=== PATIENT | male | born 1985 | race Caucasian/White ===

== ENCOUNTER 2023-11-22 18:03 | Emergency (ER) | payer OTHER, SELFPAY ==
--- NOTE | 2023-11-22 18:04 | ED.EAR ---
HPI - Ear Problem General Chief complaint: Ear Stated complaint: R EARACHE Time Seen by Provider: 11/22/23 18:04 Source: patient Mode of arrival: ambulatory Limitations: no limitations History of Present Illness HPI Narrative: Balwinder is a 38-year-old male presents to the clinic today with complaints of right ear pain yesterday. He states his ear is been more itchy than normal lately, but denies putting anything in his ear, and has been swimming in a pool within the last week. He denies any fevers, chills, discharge, congestion, runny nose, sore throat, tinnitus, or cough. Related Data Allergies Allergy/AdvReac Type Severity Reaction Status Date / Time amoxicillin Allergy Unknown Verified 11/22/23 18:10 Review of Systems Review of Systems: Pertinent positives per HPI. Patient denies any fever, chills, rash, headache, visual changes, dizziness, cough, shortness of breath, chest pain, palpitations, nausea, vomiting, diarrhea, constipation, abdominal pain, or any urinary issues. PMFSH Comments At the time of my signature, I reviewed and agree with the nursing past medical, surgical, social, and family history. There is no relevant family history pertinent to the patient complaint. Exam Narrative: General: Well-developed, well nourished, in no apparent distress Head: Normocephalic, atraumatic Eyes: Pupils equally round and reactive to light bilaterally, EOM intact, sclera and conjunctive clear, no discharge, lids normal Ears: TMs intact and clear, pustules in the right auditory canal, right tragus, pinnae, and mastoid process tender to palpation, no drainage, grossly hearing normal. Nose: Nares patent, no discharge, no inflammation, no sinus tenderness. Mouth: Oral pharynx without lesions or masses, good dentition, MMM. Neck: Supple, trachea midline, no enlargement of anterior or posterior cervical nodes, no thyroid masses or goiter palpable. Course Course Emergency Course: Portions of this record may have been created with voice recognition software. Level of Care: Express Care Visit Vital Signs Vital signs: Vital signs reviewed Medical Decision Making MDM Narrative Medical decision making narrative: At the time of visit patient is resting comfortably on the exam table. Patient appears to be nontoxic. Plan: I suspect patient has otitis externa. I will send a prescription for ofloxacin ear drops and this was reviewed with the patient. Supportive measures were discussed with the patient and they voiced understanding discharge instructions and agrees to treatment plan. Return precautions reviewed Differential Diagnosis Differential Diagnosis: Otitis externa, otitis media, otalgia, upper respiratory infection, sinusitis Discharge Plan Discharge Clinical Impression: Otitis externa Qualifiers: Otitis externa type: diffuse Chronicity: acute Laterality: right Qualified Code(s): H60.311 - Diffuse otitis externa, right ear Patient Disposition: Home, Self-Care Condition: Stable Instructions: Antibiotic Form, Swimmer's Ear (ED) Additional Instructions: Take any prescribed medications only as directed, Tylenol/motrin as needed for pain May use heating pad to alleviate pain Avoid bottle propping if ear infection in infant. If you get recurrent ear infections it may be warranted to follow up with ENT. Follow up with your PCP in 3-5 days if symptoms persist. Prescriptions: New ofloxacin 0.3 % drops 5 drp otic (ear) BID 7 Days Qty: 5 0RF Follow-up/Referrals: UNKNOWN,DOCTOR [Non-Staff] - Time of Disposition: 18:16 Quality NIHSS Nursing Documentation ED NIHSS nursing documentation: reviewed/agree
[2023-11-22 18:12] VITALS: BP 138/89; PULSE 95; RESP 16; TEMP 36.2; O2SAT 99
== END 2023-11-22 18:19 | disposition home or self-care (01) ==
PROVIDERS: Emergency Provider Nurse Practitioner Family
DX: H60.311 Diffuse otitis externa, right ear (principal)
CPT/HCPCS: 99203; G0463

== ENCOUNTER 2024-02-21 13:27 | Emergency (ER) | payer OTHER, SELFPAY ==
--- NOTE | ~2024-02-21 | CT_ITS ---
EXAMINATION: CT abdomen pelvis wo con DATE: 02/21/2024 14:25 INDICATION: Left flank pain. Hematuria. TECHNIQUE: Computed tomography (CT) of the abdomen and pelvis was performed without intravenous contr ast. Automated exposure control and iterative reconstruction technique were employed. The dose-length product was 1627.43 mGy-cm. COMPARISON: None. FINDINGS: The visualized portions of the lung bases demonstrate mild atelectasis. No pleural effusion . The heart size is normal. No pericardial effusion. There is bilateral gynecomastia. There is diffus e hepatic steatosis. The gallbladder, spleen, pancreas, adrenal glands, and right kidney are normal. There is mild left hydronephrosis and hydroureter. There is a 6 mm stone in distal left ureter. There are no dilated loops of bowel. The appendix is normal. There are no pathologically enlarged lymph no jude. There is no free intraperitoneal fluid. There is mild osteoarthritis of the hips. IMPRESSION: 1. 6 mm stone in distal left ureter with mild left hydronephrosis and hydroureter. Reviewed, dictated and finalized at location B. IMPRESSION: 1. 6 mm stone in distal left ureter with mild left hydronephrosis and hydrouret er.
[2024-02-21 13:41] VITALS: BP 150/94; PULSE 105; RESP 20; TEMP 36.4; O2SAT 100
--- NOTE | 2024-02-21 13:46 | ED.BACK ---
HPI - Back Pain/Injury General Chief Complaint: Back Pain/Injury Stated Complaint: left flank pain Time Seen by Provider: 02/21/24 13:46 Focused HPI: This is a 38 year old male that presents to the ER for left flank pain. Started this morning, progressively worsening. Associated hematuria and dysuria. Denies fevers. GENERAL: Uncomfortable, well-nourished, and in no acute distress. HEAD: Normocephalic, atraumatic. CHEST: Clear to auscultation. ?No respiratory distress. HEART: Regular rate and rhythm.? NEURO: ?Alert and oriented x3. Patient screened in triage and initial orders placed.? ?Additional care and disposition to be based upon?diagnostic testing and treatment. Related Data Allergies Allergy/AdvReac Type Severity Reaction Status Date / Time amoxicillin Allergy Unknown Verified 11/22/23 18:10 Review of Systems Review of Systems: CONSTITUTIONAL: Denies fever GASTROINTESTINAL: Reports abdominal pain. Denies nausea, vomiting GENITOURINARY: Reports dysuria and hematuria. All systems reviewed & are unremarkable except as noted in HPI and below PMFSH Past Medical History Medical History (Updated 02/21/24 @ 16:59 by Dianna Fischer PA-C) No active medical problems Social History Social History (Updated 02/21/24 @ 16:55 by Dianna Fischer PA-C) Substance use: never Exam Narrative: GENERAL: Uncomfortable, well-nourished, and in no acute distress. HEAD: Normocephalic, atraumatic. EYES: EOMI. CHEST: Clear to auscultation. No respiratory distress. No wheezes rales or rhonchi HEART: Regular rate and rhythm. No murmur heard. Normal peripheral pulses. ABDOMEN: Soft, nontender, nondistended, normal active bowel sounds. EXTREMITIES: Normal range of motion. No edema. SKIN: Warm, dry, no rash. NEURO: No focal deficits. Alert and oriented x3. PSYCH: Normal mood and affect Course Course Emergency Course: Patient updated on his workup and agrees with plan of care. Reports relief with Toradol Vital Signs Vital signs: Vital Signs Temperature 97.5 F L 02/21/24 13:41 Pulse Rate 105 H 02/21/24 13:41 Respiratory Rate 20 02/21/24 13:41 Blood Pressure 150/94 H 02/21/24 13:41 Pulse Oximetry 100 02/21/24 13:41 Temperature 97.5 F L 02/21/24 13:41 Pulse Rate 105 H 02/21/24 13:41 Respiratory Rate 20 02/21/24 13:41 Blood Pressure 150/94 H 02/21/24 13:41 Pulse Oximetry 100 02/21/24 13:41 MDM - Back Pain/Injury MDM Narrative Medical decision making narrative: Patient presents to the ER for left flank pain. He is afebrile and nontoxic appearing. Tachycardic upon arrival, this improved with management of his pain. Cbc without leukocytosis. Shows mild hemoconcentration. Metabolic panel with normal appearing kidney function. Urine with red blood cells. CT abdomen pelvis shows a 6 mm stone in the distal left ureter. Patient with relief after dose of Toradol. Updated on his workup and agrees with plan of care. is to follow-up with urology. He was given strict return precautions Differential Diagnosis Differential diagnosis: Likely renal colic, pyelonephritis and other (UTI, kidney stone) Lab Data Attestation: I reviewed the patient's lab results. 02/21/24 14:03 02/21/24 14:03 Labs: Lab Results 02/21/24 02/21/24 Range/Units 13:44 14:03 WBC 8.8 (4.5-10.0) K/mm3 RBC 6.28 H (4.6-6.20) M/mm3 Hgb 18.5 H (14.0-18.0) g/dL Hct 54.4 H (42.0-52.0) % MCV 86.6 (80-100) fl MCH 29.5 (26-34) pg MCHC 34.0 (32-36) g/dl RDW 13.1 (11.5-14.5) % Plt Count 291 (150-375) k/mm3 MPV 9.7 (7.4-10.4) fl Immature Gran % (Auto) 0.3 (0-0.5) % Neut % (Auto) 55.2 (45.5-73.1) % Lymph % (Auto) 33.1 (18.3-44.2) % [place] % (Auto) 8.2 (2.6-8.5) % Eos % (Auto) 2.4 (0-4.4) % Baso % (Auto) 0.8 (0.2-1.2) % Lymph # (Auto) 2.92 (0.9-3.2) K/mm3 [place] # (Auto) 0.7 H (0.1-0.6) K/mm3 Eos # (Auto) 0.2 (0-0.3) K/mm3 Baso # (Auto) 0.1 (0.0-0.1) K/mm3 Abs Immat Gran (auto) 0.03 (0.00-0.031) K/mm3 Absolute Neuts (auto) 4.9 (1.3-6.7) K/mm3 Absolute Nucleated RBC 0.000 (0.0-0.012) K/mm3 Nucleated RBC % 0.0 (0.0-0.2) % Sodium 144 (137-145) mmol/L Potassium 3.6 (3.4-5.0) mmol/L Chloride 105 (98-107) mmol/L Carbon Dioxide 24 (22-30) mmol/L Anion Gap 15 H (4-12) mmol/L BUN 14 (9-20) mg/dL Creatinine 1.30 (0.7-1.3) mg/dL Estim Creat Clear Calc 103 ml/min Estimated GFR > 60 (59 - ) Glucose 131 H (65-110) mg/dL Calcium 9.8 (8.4-10.2) mg/dL Total Bilirubin 0.6 (0.2-1.3) mg/dL AST 47 (17-59) U/L ALT 81 H (6-50) U/L Alkaline Phosphatase 114 (38-126) U/L Total Protein 9.0 H (6.3-8.2) g/dL Albumin 5.1 (3.5-5.1) g/dL Lipase 74 (23-300) U/L Urine Color Red H (Yellow) Urine Appearance Turbid H (Clear) Urine pH 8.0 (5.0-9.0) Ur Specific [place] 1.025 (1.001-1.035) Urine Protein 2+ H (Negative) mg/dL Urine Glucose (UA) Negative (Negative) mg/dL Urine Ketones Negative (Negative) mg/dL Ur Blood (Man) 3+ H (Negative) Urine Nitrate Negative (Negative) Urine Bilirubin 1+ H (Negative) Urine Urobilinogen 1.0 (<2.0) mg/dL Add Ur Microanalysis Reviewed Leukocyte Esterase Rfl 1+ H (Negative) STEFANI/UL Urine RBC >100 H (0-2) /hpf Urine WBC 0-5 (0-3) /hpf Ur Squamous Epith Cells None seen (Few) /hpf Urine Bacteria None seen /hpf Urine Casts 0-2 Imaging Data Radiologist's impression: ITS Impressions Abdomen/Pelvis CT 02/21/24 14:34 IMPRESSION: 1. 6 mm stone in distal left ureter with mild left hydronephrosis and hydroureter. Critical Care Time Critical Care Time Critical Care Time: No Discharge Plan Discharge Clinical Impression: Ureterolithiasis Patient Disposition: Home, Self-Care Condition: Improved Instructions: Kidney Stones (ED), How to Strain Your Urine (ED) Additional Instructions: Return to the ER if you experience fever, abdominal pain with nausea and vomiting, you are unable to keep down liquids or solids, you are unable to urinate, or any other symptoms that are concerning to you Remain well hydrated. Take Tamsulosin daily. Over the counter pain medication as needed. Prescribed pain medication as needed. Strain your urine Follow up with Urology (Dr. Lane). Call first thing Saturday morning to make a follow up appointment Prescriptions: New tamsulosin 0.4 mg capsule 0.4 mg PO DAILY Qty: 7 0RF hydrocodone-acetaminophen 5-325 mg tablet 1 tablet PO Q6H PRN (Reason: pain) Qty: 20 0RF No Action ofloxacin 0.3 % drops 5 drp otic (ear) BID 7 Days Qty: 5 0RF Follow-up/Referrals: PHYSICIAN,PHARMACIST CRITICAL CARE [Non-Staff] - Nilay Lane MD [Physician] -
[2024-02-21 14:12] LABS: Basophils Absolute Auto 0.1 K/mm3 (0.0-0.1); Basophils Percent Auto 0.8 % (0.2-1.2); Eosinophils Absolute Auto 0.2 K/mm3 (0-0.3); Eosinophils Percent Auto 2.4 % (0-4.4); Hematocrit 54.4 % (42.0-52.0); Hemoglobin 18.5 g/dL (14.0-18.0); Immature Granulocyte Absolute 0.03 K/mm3 (0.00-0.031); Immature Granulocyte Percent A 0.3 % (0-0.5); Lymphocytes Absolute Auto 2.92 K/mm3 (0.9-3.2); Lymphocytes Percent Auto 33.1 % (18.3-44.2); Mean Corpuscular Hemoglobin 29.5 pg (26-34); Mean Corpuscular Volume 86.6 fl (80-100); Mean Platelet Volume 9.7 fl (7.4-10.4); Monocytes Absolute Auto 0.7 K/mm3 (0.1-0.6); Monocytes Percent Auto 8.2 % (2.6-8.5); Neutrophils Absolute Auto 4.9 K/mm3 (1.3-6.7); Neutrophils Percent Auto 55.2 % (45.5-73.1); Platelet Count Result 291 k/mm3 (150-375); Red Blood Count 6.28 M/mm3 (4.6-6.20); Red Cell Distribution Width 13.1 % (11.5-14.5); White Blood Count 8.8 K/mm3 (4.5-10.0)
[2024-02-21] MEDS: ONDANSETRON INJ 4 MG/2 ML VIAL IV PUSH (14:15)
[2024-02-21] MEDS: MORPHINE SULFATE (*CRX) 4 MG/ML INJ IV PUSH (14:15)
[2024-02-21 14:18] LABS: Add Urine Microscopic? YES; Appearance Urine Turbid (Clear); Bacteria Urine None Seen /hpf; Bilirubin Urine 1+ (Negative); Blood Urine 3+ (Negative); Color Urine Red (Yellow); Glucose Urine UA Negative (Negative); Ketones Urine Negative (Negative); Leukocyte Esterase Ur 1+ LEU/UL (Negative); Need Manual Microscopic Reviewed; Nitrate Urine Negative (Negative); Non Pathogenic Casts 0-2; Protein Urine 2+ mg/dL (Negative); RBC Urine >100 /hpf (0-2); Specific Grav Ur 1.025 (1.001-1.035); Squamous Epithelial Cell Urine None Seen /hpf (Few); WBC Urine 0-5 /hpf (0-3)
[2024-02-21 14:20] LABS: Alanine Aminotransferase 81 U/L (6-50); Albumin Level 5.1 g/dL (3.5-5.1); Alkaline Phosphatase 114 U/L (38-126); Anion Gap 15 mmol/L (4-12); Aspartate Amino Transferase 47 U/L (17-59); Bilirubin,Total 0.6 mg/dL (0.2-1.3); Blood Urea Nitrogen 14 mg/dL (9-20); Calcium 9.8 mg/dL (8.4-10.2); Carbon Dioxide 24 mmol/L (22-30); Chloride 105 mmol/L (98-107); Estimated CRCL calculation 103 ml/min; Estimated Glomerular Filt Rate > 60; Glucose 131 mg/dL (65-110); Lipase 74 U/L (23-300); Potassium 3.6 mmol/L (3.4-5.0); Sodium 144 mmol/L (137-145)
[2024-02-21 15:24] VITALS: BP 162/92; PULSE 78; RESP 14; O2SAT 100
[2024-02-21] MEDS: KETOROLAC 15 MG/ML VIAL (*BKC) IV PUSH (16:16)
[2024-02-21 16:20] VITALS: BP 155/84; PULSE 81; RESP 14; O2SAT 96
[2024-02-21 17:02] VITALS: BP 121/57; PULSE 103; RESP 16; O2SAT 96
[2024-02-21 17:17] VITALS: BP 129/80; PULSE 89; RESP 15; O2SAT 95
== END 2024-02-21 17:25 | disposition home or self-care (01) ==
PROVIDERS: Student in an Organized Health Care Education/Training Program; Emergency Provider Physician Assistant
DX: N13.2 Hydronephrosis with renal and ureteral calculous obstruction (principal)
CPT/HCPCS: 36415; 74176; 80053; 81001; 83690; 85025; 87086; 96374; 96375; 99284; J1885; J2270; J2405